=== PATIENT | female | born 1940 ===

== ENCOUNTER 2018-07-18 14:15 | Emergency (ER) | payer SELFPAY ==
[~2018-07-18 14:15] MED LIST: 0.9 % SODIUM CHLORIDE 100 ML IV.SOLN IV ONE; NORMAL SALINE 1,000 ML IV.SOLN IV ONE; ONDANSETRON HCL/PF 4 MG/ 2ML VIAL ONE; cefTRIAXone SODIUM 1 GM INJ ONE
[2018-08-06 11:51] LABS: BASOPHILS % 0.4 % (0.0-1.5); NEUTROPHILS # 5.9 # k/uL (1.4-7.7); eGFR (Non-African) 19
[2018-08-06 11:58] LABS: APPEARANCE,URINE CLEAR (CLEAR); COLOR,URINE AMBER (YELLOW); OCCULT BLOOD,URINE TRACE-LYSED (NEGATIVE)
[2018-08-18 16:17] VITALS: BP 144/77
--- NOTE | 2018-09-08 09:02 | Diagnostic Imaging Report ---
MICA GODFREY [facility] [address] [facility] [address] [place], [place]. [address] Report Submission Date: Jul 18, 2018 4:15:30 PM CDT Patient Study Name: ZI DENTON Date: Jul 18, 2018 3:20:40 PM CDT Modality Type: CT\SR Gender: F Description: CT CH/AB/P W/O : 42 Institution: [facility] Physician: MICA GODFREY Exam: CT chest abdomen and pelvis without contrast. History: Diarrhea. Shortness of breath. Cyanosis. Axial images through the thorax, abdomen and pelvis without oral or IV contrast is submitted along with sagittal and coronal reformatted images. Bilateral pleural effusions are noted greater on the right than on the left. Patchy left lower lobe and lingular infiltrates are noted. A tortuous appearance of the thoracic aorta is noted . Atherosclerotic plaque in the aorta is noted. The mainstem pulmonary artery is prominent measuring 4 cm in greatest diameter which may indicate pulmonary arterial hypertension. A large amount of cellulitis over the left side of the thorax is identified. Small pericardial effusion is noted. The cardiac silhouette is enlarged. No significant mediastinal or axillary adenopathy is detected on this nonenhanced study. Mild degenerative changes in the thoracic spine are seen. A moderate amount of ascites adjacent to the liver and the spleen are noted. A large collection of fluid in the pelvis is also noted. The liver and spleen are normal in attenuation without space-occupying lesion. It is difficult to delineate the pancreas without oral or IV contrast. The adrenal glands are not well visualized. The abdominal aorta is of normal caliber and associated with atherosclerotic plaque. Shotty periaortic lymphadenopathy is suspected. Both kidneys appear normal in attenuation without hydronephrosis. The uterus appears normal in attenuation. The urinary bladder is distended without intrinsic filling defect. Streaking inflammatory changes throughout the mesentery is noted suggestive of a peritonitis. A small periumbilical hernia contains some loops of bowel. Mild degenerative changes in the hips are identified. Impression: Bilateral pleural effusions greater on the right than on the left. Patchy lower lobe and lingular infiltrates. Tortuous thoracic aorta. Prominent mainstem pulmonary artery could indicate pulmonary arterial hypertension. Cellulitis over the left side of the thorax is identified. Moderate amount of ascites adjacent to the liver spleen and collecting within the pelvis. The pancreas is difficult to delineate on this study. Shotty periaortic lymphadenopathy is suspected. No hydronephrosis. Streaky inflammatory changes throughout the mesentery is suggestive of peritonitis. Small periumbilical hernia contains a loop of small bowel. Electronically signed on Jul 18, 2018 4:15:30 PM CDT by: Bran MURPHY
--- NOTE | 2018-09-08 09:11 | Diagnostic Imaging Report ---
MICA GODFREY [facility] [address] [facility] [address] [place], [place]. [address] Report Submission Date: Jul 18, 2018 3:02:34 PM CDT Patient Study Name: ZI DENTON Date: Jul 18, 2018 2:42:19 PM CDT Modality Type: DX Gender: F Description: : 42 Institution: [facility] Physician: MICA GODFREY Portable chest History: Short of breath Portable chest dated July 18, 2018 is without prior radiographs for comparison. The heart is enlarged. Small bilateral pleural effusions are present. Aortic atherosclerosis is present. Pulmonary vascularity is normal. Impression: Cardiomegaly with small bilateral pleural effusions. Electronically signed on Jul 18, 2018 3:02:34 PM CDT by: Shanice MURPHY
== END 2018-07-18 18:42 ==
LOC: ED 14:15
DX: J18.9 Pneumonia, unspecified organism (principal); J90 Pleural effusion, not elsewhere classified; N17.9 Acute kidney failure, unspecified; J96.01 Acute respiratory failure with hypoxia
CPT/HCPCS: 36415; 51701; 71045; 71250; 74176; 80053; 81002; 82272; 85025; 87040; 93005; 96374; 96375; 99285; J0696; J2405; J7030; 51702; S1016

== ENCOUNTER 2018-10-09 17:08 | Outpatient (CLI) | payer MEDICARE ==
[2018-08-18 16:17] VITALS: BP 144/77
[2018-10-09 17:35] LABS: BASOPHILS % 0.3 % (0.0-1.5); NEUTROPHILS # 3.8 # k/uL (1.4-7.7)
[2018-10-09 17:39] LABS: eGFR (Non-African) > 60
--- NOTE | 2018-10-11 12:42 | Diagnostic Imaging Report ---
FARIDA KEARNEY [facility] [address] [facility] [address] [place], [place]. [address] Report Submission Date: Oct 09, 2018 5:44:15 PM CDT Patient Study Name: ZI DENTON Date: Oct 09, 2018 5:16:38 PM CDT Modality Type: DX Gender: F Description: CHEST 2VIEW : 42 Institution: [facility] Physician: FARIDA KEARNEY CHEST XRAY HISTORY: PNEUMONIA FINDINGS: PA and lateral chest x-ray demonstrate lungs to be clear of focal infiltrates and expanded bilaterally. Cardiomegaly is seen with pacemaker in place with a pacer battery overlying the left chest and electrodes in the heart. Dextroscoliosis of the thoracic spine is seen. Improved aeration in the lungs is identified when compared to the prior study of August 15, 2018. IMPRESSION: Cardiomegaly. Improved appearance of the lungs since prior study with no active intrathoracic disease identified. Electronically signed on Oct 09, 2018 5:44:15 PM CDT by: Manolo MURPHY
== END 2018-10-09 17:10 ==
LOC: LAB 17:08
PROVIDERS: ATTEND Family Medicine
DX: J18.1 Lobar pneumonia, unspecified organism (principal)
CPT/HCPCS: 36415; 71046; 80053; 85025

== ENCOUNTER 2019-02-02 16:15 | Inpatient (IN) | payer MEDICARE ==
[2019-02-02] MEDS ORDERED: IPRATROPIUM/ALBUTEROL SULFATE 3 ML AMPUL.NEB NEB PRN (16:34)
[2019-02-02] MEDS ORDERED: ONDANSETRON HCL/PF 4 MG/ 2ML VIAL IVP PRN (16:36)
[2019-02-02 16:38] VITALS: BMI 27.3
[2019-02-02] MEDS ORDERED: 0.9 % SODIUM CHLORIDE 1,000 ML IV SCH (16:45)
[2019-02-02] MEDS ORDERED: PANTOPRAZOLE SODIUM 40 MG in SODIUM CHLORIDE 0.9 % (FLUSH) 10 ML IVP SCH (17:00)
[2019-02-02] MEDS ORDERED: 0.9 % SODIUM CHLORIDE 1,000 ML IV ONE (17:15)
[2019-02-02 17:32] LABS: BASOPHILS % 0.6 % (0.0-1.5); NEUTROPHILS # 7.3 # k/uL (1.4-7.7)
--- NOTE | 2019-02-02 17:53 | Diagnostic Imaging Report ---
PATIENT MR#: [id number] PATIENT PATIENT NAME: ZI DENTON DATE OF : 1940 REFERRING PHYSICIAN: Lizzette Gallegos EXAM DATE: 02/02/2019 ACCESSION NUMBER: [id number] EXAM DESCRIPTION: CHEST 2VIEW PA and lateral chest Clinical history: Shortness of breath. Hypoxemia. Findings: Examination of the chest in AP and lateral views with comparison to examination 10/09/2018 demonstrates again cardiomegaly and aortic atherosclerosis. Multilead pacemaker overlies left hemithorax without change . Lungs are free of coalescent infiltrate. Bony thorax is intact. Impression: 1. Cardiomegaly and aortic atherosclerosis. 2. Multilead pacemaker. Read by: Dr. Robert Blandon Transcribed by: Transcribed Date: Electronically signed by: Dr. Robert Blandon Date signed: 02/02/2019 5:53:15 PM
[2019-02-02] MEDS ORDERED: PANTOPRAZOLE SODIUM INJ. 40 MG VIAL ONE (18:23)
--- NOTE | 2019-02-02 18:54 | History and Physical Report ---
History of Present Illnes - History of Present Illness Reason for Visit: Nausea and Vomiting History of Present Illness: 78 year old female admitted observation from the clinic. She was seen in the clinic for nausea and vomiting (dry heaves). She last ate yesterday morning at breakfast and has not been able to keep anything down since. Daughter was with patient in the clinic today and was able to "sign" for patient. Daughter states that patient has not had any fever or chills, no diarrhea, denies any chest pain or shortness of breath; denies eating any bad food or exposure to someone ill. It was decided to place patient in hospital overnight and complete labs and get cxr. 18:40 Troponin of 0.252; contacted daughter Lavern- she would like patient transferred to [facility] 18:50 Contacted [facility] and spoke with Ketan, Supply Person,- will call back. 19:20 Dr. 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) Renal/: Chronic renal insuff (+) - Past Surgical History Past Surgical History: Appendectomy, Cholecystectomy, Other (Biventricular pacemaker placement 07/2018, multiple chalo removals, PCI with stent 2010) - Past Social History Smoke: Quit Alcohol: None Drugs: None Lives: With Family Domestic Violence: Negative - Health Maintenance Health Maintenance: Cholesterol Influenza Vaccine: Current for this Influenza Season Pneumonia Vaccine: Yes Resuscitation Status: Resusciation Status Resuscitation Status Full Code Review of Systems - Review of Systems Constitutional: negative: Fever, Chills Eyes: negative: redness ENT: negative: Ear Pain, Ear Discharge, Nose Pain, Nose Discharge, Nose Co ngestion Respiratory: negative: Cough, Shortness of Breath, Wheezing Cardiovascular: negative: Chest Pain, Edema Gastrointestinal: Nausea, Vomiting. negative: Abdominal Pain Genitourinary: Incontinence (stress) Musculoskeletal: negative: Back Pain Skin: negative: Rash Neurological: Weakness - Medications/Allergies Allergies/Adverse Reactions: Allergies Allergy/AdvReac Type Severity Reaction Status Date / Time No Known Allergies Allergy Verified 08/15/18 16:06 Home Medications: Home Medications Isosorbide Dinit/Hydralazine [Bidil Tablet] 0.5 tab PO BID 02/02/19 Ondansetron [Zuplenz] 8 mg PO PRN PRN 02/02/19 Current Inpatient Medications: Current Inpatient Medications Albuterol/Ipratropium (Duoneb) 3 ml NEB Q4 PRN PRN Reason: Wheezing Stop: 03/04/19 16:33 Sodium Chloride (Normal Saline) 1,000 mls @ 100 mls/hr IV Q10H NKECHI Stop: 03/04/19 16:44 Last Admin: 02/02/19 18:27 Dose: 100 mls/hr Pantoprazole Sodium 40 mg/ (SODIUM CHLORIDE 0.9 % (FLUSH)) 10 mls @ 300 mls/hr IVP 717 NKECHI Stop: 03/04/19 16:59 Last Admin: 02/02/19 18:31 Dose: 300 mls/hr Ondansetron HCl (Zofran) 4 mg IVP Q6H PRN PRN Reason: Nausea / Vomiting Stop: 03/04/19 16:35 Exam - Exam Vital Signs: Vital Signs (72 hours) 02/02/19 02/02/19 02/02/19 16:32 16:33 16:35 Temperature 97.8 F 97.8 F Pulse Rate 65 Pulse Rate [ 75 75 Left Pulse ox] Respiratory 18 18 Rate Blood Pressure 148/60 148/60 [Left Arm] Blood Pressure 144/77 [Right Arm] O2 Sat by Pulse 96 96 96 Oximetry 02/02/19 18:00 Temperature 98.7 F Pulse Rate Pulse Rate [ 76 Left Pulse ox] Respiratory 18 Rate Blood Pressure 165/88 [Left Arm] Blood Pressure [Right Arm] O2 Sat by Pulse 97 Oximetry General: Alert, Oriented to Person, Oriented to Place, Oriented to Time, Cooperative, Mild distress HEENT: Atraumatic, PERRLA, Other (DEAF- "Signs", dry mucous membranes) Neck: Normal Range of Motion Carotids: No bruit Lungs: Speaks full Sentences (Diminished bibasilar) Cardiovascular: Other (PACED) Abdomen: Normal bowel sounds, Soft Integumentary: Warm, Dry, Pale Extremities: Normal pulses, No tenderness/swelling Neurological: Normal gait, Normal speech, Strength Equal Bilat, Sensation intact, Generalized Weakness Psych/Mental Status: Mental status NL, Appropriate Affect - Laboratory Results Laboratory Results: Laboratory Results 02/02/19 02/02/19 02/02/19 17:22 17:22 17:22 WBC 9.80 RBC 4.70 Hgb 12.7 Hct 38.7 MCV 82.0 MCH 26.9 L MCHC 32.7 RDW 13.3 Plt Count 224 Neut % (Auto) 73.7 Lymph % (Auto) 16.5 Crisp % (Auto) 8.6 Eos % (Auto) 0.6 Baso % (Auto) 0.6 Neut # (Auto) 7.3 Lymph # (Auto) 1.6 Crisp # (Auto) 0.9 Eos # (Auto) 0.1 Baso # (Auto) 0.1 PT 11.6 INR 1.12 H Sodium 139 Potassium 4.2 Chloride 98 Carbon Dioxide 32 H Anion Gap 13.2 BUN 41 H Creatinine 1.87 H Estimated Creat Clear 30 Est GFR ( Amer) 34 L Est GFR (Non-Af Amer) 28 L Glucose 102 Calcium 9.0 Total Bilirubin 0.8 AST 85 H ALT 55 H Alkaline Phosphatase 155 H Creatine Kinase 85 CK-MB (CK-2) 3.0 Troponin I 0.252 H* NT-Pro-B Natriuret Pep 70179.0 H Total Protein 7.7 Albumin 4.2 Assessment/Plan - Assessment/Plan (1) Nausea and vomiting Status: Acute Qualifiers: Vomiting type: unspecified Vomiting Intractability: non-intractable Qualified Code(s): R11.2 - Nausea with vomiting, unspecified Assessment: Dry heaves; able to tolerate ice chips Plan: NPO with the exception of ice chips; Zofran for nausea VTE Assessment - RISK FACTOR SCORE VTE RISK FACTOR SCORES: AGE OVER 60 YEARS, OTHER - RISK VTE MODERATE RISK: SCORE OF 2 (RISK PROXIMAL DVT 2-4%) PROPHYAXIS NEEDED (Pt currently on Coumadin)
--- NOTE | 2019-02-02 19:35 | Discharge Summary ---
Discharge Summary - Discharge [facility] Admission Date: 02/02/19 Discharge Date: 02/02/19 Discharge To: Other ([facility]) History of Present Illness: 78 year old female admitted observation from the clinic. She was seen in the clinic for nausea and vomiting (dry heaves). She last ate yesterday morning at breakfast and has not been able to keep anything down since. Daughter was with patient in the clinic today and was able to "sign" for patient. Daughter states that patient has not had any fever or chills, no diarrhea, denies any chest pain or shortness of breath; denies eating any bad food or exposure to someone ill. It was decided to place patient in hospital overnight and complete labs and get cxr. Condition at Discharge: Stable Home Medications: Ambulatory Orders Medication Instructions Recorded Amiodarone HCl [Pacerone] 1 tab PO BID 08/15/18 Atorvastatin Calcium 1 tab PO DAILY 08/15/18 Carvedilol [Coreg] 3.125 mg PO BID 08/15/18 Donepezil HCl [Aricept] 1 tab PO QDAY 08/15/18 Furosemide [Lasix] 1 tab PO DAILY PRN 08/15/18 Sertraline HCl [Zoloft] 1 tab PO QDAY 08/15/18 Isosorbide Dinit/Hydralazine 0.5 tab PO BID 02/02/19 [Bidil Tablet] Ondansetron [Zuplenz] 8 mg PO PRN PRN 02/02/19 Consultations this Visit: Cardiology Allergies/Adverse Reactions: Allergies Allergy/AdvReac Type Severity Reaction Status Date / Time No Known Allergies Allergy Verified 08/15/18 16:06 Discharge Summary: 78 year old female was admitted obsv. from the clinic for nausea and vomiting (dry heaves) that started yesterday; Lab results came back with an elevated troponin. Dr. Stroud with Cardiology at [facility] has accepted patient and patient will be transferred to [facility]. - Final Diagnosis (1) Nausea and vomiting Problems: Stable Right or Left: Right (2) Elevated troponin I level Problems: Transfer to [facility] Right or Left: Right
[2019-02-02 20:20] VITALS: BP 166/99
== END 2019-02-02 20:26 | disposition short-term general hospital (02) | DRG 948 ==
LOC: UNDOADMIN 16:15 → SOUTH 16:15
PROVIDERS: ADMIT Nurse Practitioner Family; ATTEND Nurse Practitioner Family
DX: R79.89 Other specified abnormal findings of blood chemistry (principal); I13.0 Hypertensive heart and chronic kidney disease with heart failure and stage 1 through stage 4 chronic kidney disease, or unspecified chronic kidney disease; R11.2 Nausea with vomiting, unspecified; I50.9 Heart failure, unspecified; N18.9 Chronic kidney disease, unspecified; I48.91 Unspecified atrial fibrillation; I25.10 Atherosclerotic heart disease of native coronary artery without angina pectoris; I25.5 Ischemic cardiomyopathy; H90.5 Unspecified sensorineural hearing loss; Z90.49 Acquired absence of other specified parts of digestive tract; Z95.0 Presence of cardiac pacemaker; Z95.5 Presence of coronary angioplasty implant and graft; Z87.891 Personal history of nicotine dependence; Z79.899 Other long term (current) drug therapy
CPT/HCPCS: 36415; 80053; 82550; 82553; 83880; 84484; 85025; 85610; 93005; 99238; G0379; J7030; S1016